=== PATIENT | male | born 1980 | race African-American/Black ===

== ENCOUNTER 2019-05-18 12:41 | Emergency (ER) | payer MEDICAID ==
[~2019-05-18] VITALS: Ht 188 cm; Wt 83.9 kg
[~2019-05-18 12:41] MED LIST: NKM
[2019-05-18 13:20] VITALS: BP 143/74
[2019-05-18] MEDS ORDERED: Haloperidol 5mg/ml Inj IM ONE (13:30)
[2019-05-18] MEDS ORDERED: DiphenhydrAMINE 50mg/ml Inj IM ONE (13:30)
[2019-05-18] MEDS ORDERED: LORazepam Inj 2mg/ml 1ml IM ONE (13:30)
--- NOTE | 2019-05-18 13:33 | NUR ---
ED Nurse Note: ASSITED PT INTO BE WITH [employer]
--- NOTE | 2019-05-18 13:50 | NUR ---
ED Nurse Note: PT ARRIVED WITH [address] AND [employer] AT BEDSIDE DUE TO HARM TO SELF. PT PLACED ON HOLD PER [employer]. PT IS VERBALLY ABUSIVE TO STAFF AND IS ANXIOUS.
--- NOTE | 2019-05-18 14:00 | NUR ---
ED Nurse Note: PT BELONINGS PLACED IN LOWER DIRT UTLITY LINEN LOCKER.
[2019-05-18 14:51] VITALS: BP 141/82
--- NOTE | 2019-05-18 15:07 | Emergency Room Report ---
History of Present Illness General Chief Complaint: Behavioral Complaint Source: Patient, EMS (Aquilino White MD) Present Illness HPI 38-year-old male unknown medical history presents with possible drug exposure patient was running throughout the street, almost getting hit by cars, patient is speaking in a pressured way history is limited due to patient's altered mental status, patient is being placed under a 5150 by police patient is also threatening staff and speaking to voices (Aquilino White MD) Allergies: Coded Allergies: No Known Allergies (Unverified , 01/27/16) Patient History Limited by: medical condition - Altered mental status Past Medical History: see triage record Reviewed Nursing Documentation: PMH: Agreed; PSxH: Agreed (Aquilino White MD) Nursing Documentation-PMH Past Medical History: No Stated History (Aquilino White MD) Review of Systems All Other Systems: limited - Altered mental status (Aquilino White MD) Physical Exam Vital Signs Date Time Temp Pulse Resp B/P (MAP) Pulse Ox O2 Delivery O2 Flow Rate FiO2 05/18/19 13:20 86 16 05/18/19 13:20 97.9 143/74 100 Room Air Sp02 EP Interpretation: reviewed, normal General Appearance: well appearing, no apparent distress, alert Head: normocephalic, atraumatic Eyes: bilateral eye PERRL, bilateral eye EOMI ENT: uvula midline, moist mucus membranes Neck: supple, thyroid normal, supple/symm/no masses Respiratory: lungs clear, no respiratory distress, no retraction, no accessory muscle use Cardiovascular #1: normal peripheral pulses, regular rate, rhythm, no edema, no gallop, no murmur Gastrointestinal: non tender, soft, no guarding, no rebound Musculoskeletal: normal inspection Neurologic: alert, oriented x3 Psychiatric: anxious, other - Reacting to internal stimuli Skin: no rash, warm/dry (Aquilino White MD) Medical Decision Making Diagnostic Impression: Primary Impression: Behavioral disorder Laboratory Tests Test 05/18/19 15:15 White Blood Count 6.8 K/UL (4.8-10.8) Red Blood Count 4.15 M/UL (4.70-6.10) L Hemoglobin 12.7 G/DL (14.2-18.0) L Hematocrit 37.1 % (42.0-52.0) L Mean Corpuscular Volume 89 FL (80-99) Mean Corpuscular Hemoglobin 30.5 PG (27.0-31.0) Mean Corpuscular Hemoglobin Concent 34.1 G/DL (32.0-36.0) Red Cell Distribution Width 12.2 % (11.6-14.8) Platelet Count 282 K/UL (150-450) Mean Platelet Volume 5.3 FL (6.5-10.1) L Neutrophils (%) (Auto) 59.1 % (45.0-75.0) Lymphocytes (%) (Auto) 25.7 % (20.0-45.0) Monocytes (%) (Auto) 7.9 % (1.0-10.0) Eosinophils (%) (Auto) 6.3 % (0.0-3.0) H Basophils (%) (Auto) 0.9 % (0.0-2.0) Sodium Level 148 MMOL/L (136-145) H Potassium Level 4.8 MMOL/L (3.5-5.1) Chloride Level 111 MMOL/L (98-107) H Carbon Dioxide Level 27 MMOL/L (21-32) Anion Gap 10 mmol/L (5-15) Blood Urea Nitrogen 25 mg/dL (7-18) H Creatinine 1.4 MG/DL (0.55-1.30) H Estimate Glomerular Filtration Rate > 60 mL/min (>60) Glucose Level 84 MG/DL (74-106) Calcium Level 9.2 MG/DL (8.5-10.1) Total Bilirubin Pending Aspartate Amino Transferase (AST) Pending Alanine Aminotransferase (ALT) Pending Alkaline Phosphatase Pending Total Protein Pending Albumin Pending Globulin Pending Salicylates Level Pending Acetaminophen Level Pending Serum Alcohol Pending (Aquilino White MD) ER Course Patient is endorsed me by Dr. White. He was medically cleared for psychiatric evaluation. Patient did have somnolence after medications. (Cedric Valenzuela MD) Last Vital Signs Date Time Temp Pulse Resp B/P (MAP) Pulse Ox O2 Delivery O2 Flow Rate FiO2 05/18/19 14:51 98.3 76 16 141/82 95 Room Air (Aquilino White MD) Reevaluation Time: 15:30 Reevaluation Impression Assumed care of the patient approximately 7 AM from previous provider Briefly, there is a 38-year-old male brought in on 5150 legal status for running through traffic. He has tested positive for amphetamines and has been medically cleared by previous provider for psychiatric evaluation. Patient has been seen by Dr. Garcia who has lifted the 5150 legal hold. Advised to no longer use amphetamines or other illicit drugs. Can follow-up on an outpatient basis with the resources included in discharge paperwork. Return to the emergency department new or worsening symptoms. (Ronal Rivera MD) Disposition: XFER TO PSYCH HOSP/UNIT Condition: Serious Referrals: [facility]ERR[facility] (PCP) Aquilino White MD May 18, 2019 15:07 Cedric Valenzuela MD May 18, 2019 21:03 Ronal Rivera MD May 19, 2019 15:37
--- NOTE | 2019-05-18 15:24 | NUR ---
ED Nurse Note: PT ASLEEP IN BED
[2019-05-18 15:40] LABS: BASOPHILS % (AUTO) 0.9 % (0.0-2.0); EOSINOPHILS % (AUTO) 6.3 % (0.0-3.0); HEMATOCRIT 37.1 % (42.0-52.0); HEMOGLOBIN 12.7 G/DL (14.2-18.0); LYMPHOCYTES % (AUTO) 25.7 % (20.0-45.0); MEAN CORPUSCULAR VOLUME 89 FL (80-99); MONOCYTES % (AUTO) 7.9 % (1.0-10.0); NEUTROPHILS % (AUTO) 59.1 % (45.0-75.0); PLATELET COUNT 282 K/UL (150-450); RED BLOOD COUNT 4.15 M/UL (4.70-6.10); RED CELL DISTRIBUTION WIDTH 12.2 % (11.6-14.8); WHITE BLOOD COUNT 6.8 K/UL (4.8-10.8)
[2019-05-18 16:10] LABS: ANION GAP 10 mmol/L (5-15); BLOOD UREA NITROGEN 25 mg/dL (7-18); CALCIUM 9.2 MG/DL (8.5-10.1); CARBON DIOXIDE 27 MMOL/L (21-32); CHLORIDE 111 MMOL/L (98-107); CREATININE 1.4 MG/DL (0.55-1.30); POTASSIUM 4.8 MMOL/L (3.5-5.1); SODIUM 148 MMOL/L (136-145)
[2019-05-18 16:22] LABS: ALANINE AMINOTRANSFERASE 31 U/L (12-78); ALBUMIN 3.8 G/DL (3.4-5.0); ALBUMIN/GLOBULIN RATIO 1.2 (1.0-2.7); ALKALINE PHOSPHATASE 97 U/L (46-116); ASPARTATE AMINO TRANSFERASE 30 U/L (15-37); BILIRUBIN,TOTAL 1.5 MG/DL (0.2-1.0)
[2019-05-18 16:28] LABS: BILIRUBIN,DIRECT 0.2 MG/DL (0.0-0.3)
[2019-05-18 16:47] VITALS: BP 130/74
--- NOTE | 2019-05-18 17:20 | NUR ---
ED Nurse Note: PT CALM AND ASLEEP
--- NOTE | 2019-05-18 17:35 | NUR ---
ED Nurse Note: PT URINATED ON SELF. LINENS AND GOWN CHANGED. PT GIVEN ADDITIONAL BLANKETS.
[2019-05-18 18:57] VITALS: BP 135/77
--- NOTE | 2019-05-18 18:57 | NUR ---
ED Nurse Note: PT REQUESTED URINAL BOTTLE. BOTTLE PROVIDED URINE OBTAINED
--- NOTE | 2019-05-18 19:04 | NUR ---
HAND-OFF: Report given to REY COPELAND RN.
--- NOTE | 2019-05-18 21:00 | NUR ---
ED Nurse Note: pt appears to be asleep in his bed, no acute distress noted. breathing is even and non-labored. safety precautions in place, sitter is at bedside. will continue to monitor pt
[2019-05-18 22:06] VITALS: BP 132/69
--- NOTE | 2019-05-19 02:00 | NUR ---
ED Nurse Note: pt appears to be asleep in bed with his eyes closed. does not appear to be in any distress at this time. breathing is even and non-labored, safety precautions in place. sitter at bedside
[2019-05-19 02:32] VITALS: BP 136/67
--- NOTE | 2019-05-19 05:00 | NUR ---
ED Nurse Note: breakfast tray has been ordered for pt. pt is in bed and appears to be sleeping, no acute distress is noted at this time. breathing is even and non-labored, VSS, safety precautions are in place, sitter is at bedside.
[2019-05-19 06:05] VITALS: BP 133/68
--- NOTE | 2019-05-19 06:14 | NUR ---
ED Nurse Note: pt able to ambulate to restroom with steady gait
--- NOTE | 2019-05-19 06:47 | NUR ---
ED Nurse Note: pt is in bed eating breakfast
--- NOTE | 2019-05-19 07:10 | NUR ---
HAND-OFF: Report given to LYNNE Ghosh.
--- NOTE | 2019-05-19 07:16 | NUR ---
ED Nurse Note: Pt lying comfortably in bed with no signs of distress. Pt denies suicidal ideation at this time. Room is safe. Respirations even and unlabored on room air. Vitals stable as documented.
--- NOTE | 2019-05-19 07:39 | NUR ---
ED Nurse Note: Cedric Vargas @ bedside
[2019-05-19 07:52] VITALS: BP 129/73
--- NOTE | 2019-05-19 15:15 | NUR ---
ED Nurse Note: DR. MENDEZ LIFTED THE HOLD
--- NOTE | 2019-05-19 15:58 | NUR ---
ED Nurse Note: Pt assessed by Dr. Garcia and tatiana to discharge. Pt denies suicidal ideation.
[2019-05-19 16:00] VITALS: BP 125/79
--- NOTE | 2019-05-19 16:00 | NUR ---
Homeless Discharge: Patient is being discharged from medical care. Awake, alert and oriented x4. After care instructions, including referral to community resources were given. Patient verbalized understanding of After care instructions; at this time patient does not request medications, equipment or placement. Patient signed patient consent in the medical record for patient destination upon discharge. All medical devices such as IV and ID band were removed. Patient ambulated out with all personal belongings with steady gait.
--- NOTE | 2019-05-20 17:45 | Consultation ---
DATE OF CONSULTATION: HISTORY OF PRESENT ILLNESS: This is a 38-year-old [facility] male with a history of substance use disorder since the patient using meth who has been admitted to the hospital on a 5150 for danger to self. The patient has been sleeping the whole time today in the emergency room, eating well, no behavior issues noted, was witnessed to be responding to internal stimuli. The patient is calm and cooperative during the evaluation. The patient is denying any suicidal ideation. He stated that he has a history of depression and has not been taking his med, not seeing his psychiatrist. PAST MEDICAL HISTORY: No history of medical condition. ALLERGIES: No known drug allergies. SUBSTANCE ABUSE HISTORY: Significant for illicit drug use specifically methamphetamines. His system is positive for meth. MENTAL STATUS EXAMINATION: The patient is alert and oriented times self, place, situation, and date. Mood is neutral. Affect is constricted. Congruent mood. Thought process is concrete. Thought content, there is no suicidal or homicidal ideation. No auditory or visual hallucination noticed. Cognition is intact. Insight and judgment is fair. ASSESSMENT: [place] I Methamphetamine abuse, rule out major depressive disorder. [place] II Deferred. [place] III As above. [place] IV Low. [place] V 20 PLAN: 1. The patient will be started on Ativan p.r.n. 2. Provide the patient with reality orientation and supportive therapy. Continue to follow and readjust the medication. Smooth Garcia M.D. DR: BELEN JOB#: [id number] CC: BECKY
== END 2019-05-19 16:00 | disposition home or self-care (01) ==
LOC: EDUNIT# 12:41 → EDBD 12:41 → EMR 14:20
DX: F91.9 Conduct disorder, unspecified (principal)
CPT/HCPCS: 36415; 80053; 80307; 82248; 85025; 96360; 96361; 96372; G0480; G0481; J1200; J1630; J7030; Z7502; 99285

== ENCOUNTER 2019-07-01 18:31 | Emergency (ER) | payer MEDICAID ==
[~2019-07-01] VITALS: Ht 198.1 cm; Wt 77.1 kg
--- NOTE | 2019-07-01 18:26 | NUR ---
ED Nurse Note: PT brought into ED by [facility] [address] for c/o pain to left foot x 3 days. denies injury.
[2019-07-01 18:27] VITALS: BP 180/98
--- NOTE | 2019-07-01 18:49 | Emergency Room Report ---
History of Present Illness General Chief Complaint: General Complaint Source: Patient Present Illness HPI Patient is a 38-year-old male who presents after increased foot pain after recent fall. Patient was brought in by EMS. Denies any other locations of current injury. He had recently been released from long term. Denies any prior medication history.Patient states that he had pain to both feet. Pain is sharp in nature. Denies any other locations of pain currently. Has been able to ambulate normally. COVID-19 risk:Travel to affect: No Allergies: Coded Allergies: IBUPROFEN (Unverified Allergy, Unknown, 07/02/19) Patient History Past Medical History: see triage record Reviewed Nursing Documentation: PMH: Agreed; PSxH: Agreed Nursing Documentation-PMH Past Medical History: No Stated History Review of Systems All Other Systems: negative except mentioned in HPI Physical Exam Vital Signs Date Time Temp Pulse Resp B/P (MAP) Pulse Ox O2 Delivery O2 Flow Rate FiO2 07/01/19 18:20 72 16 184/112 (136) 98 Room Air 07/01/19 18:27 97.9 General Appearance: well appearing, no apparent distress, alert, GCS 15, non- toxic Head: normocephalic, atraumatic ENT: hearing grossly normal, normal voice Neck: full range of motion, supple Respiratory: lungs clear, normal breath sounds, no respiratory distress, speaking full sentences Gastrointestinal: normal inspection, normal bowel sounds, non tender, soft Musculoskeletal: normal inspection Neurologic: alert, motor strength/tone normal, motion designer III-XII nml as tested, oriented x3, normal gait Psychiatric: mood/affect normal Skin: no rash Medical Decision Making Diagnostic Impression: Primary Impression: Immersion (trench) foot Additional Impression: Chronic foot pain ER Course Patient presented for foot pain. Differential diagnosis include was not limited to fracture, arthritis, pressure ulcer, among others. Patient was noted to have some skin changes consistent with over immersion due to wet socks. This appears to be fairly mild. Patient was given dry socks. X-rays of foot showed normal bony alignment without evident fracture. Was noted to be ambulatory without assistance. He was advised to follow-up with his primary care physician. Patient was given ibuprofen and tolerated this well. No signs of allergy. the patient is advised to follow up with primary care doctor in 1- 2 days. Patient is advised to return if any worsening condition or if any changes in status that are concerning. This report is dictated with [employer] wound care technician software which may occasionally lead to discrepancies related to use of this software. Last Vital Signs Date Time Temp Pulse Resp B/P (MAP) Pulse Ox O2 Delivery O2 Flow Rate FiO2 07/01/19 18:27 80 16 Room Air 07/01/19 18:27 97.9 180/98 98 Status: improved Disposition: HOME, SELF-CARE Condition: Stable Scripts Ibuprofen* (MOTRIN*) 600 Mg Tablet 600 MG ORAL Q8H PRN for For Pain, #30 TAB 0 Refills Prov: Cedric Valenzuela MD 07/01/19 Cedric Valenzuela MD Jul 01, 2019 18:49
--- NOTE | 2019-07-01 18:50 | NUR ---
ED Nurse Note: x ray taken at bedside.
--- NOTE | 2019-07-01 19:04 | NUR ---
ED Nurse Note: Report given to LYNNE Santiago. Endorsed plan of care.
--- NOTE | 2019-07-01 19:10 | NUR ---
ED Nurse Note: received report from Arin BATISTA. Pt is calm and sleeping.
[2019-07-01] MEDS ORDERED: IBUPROFEN600 MG ORAL (19:40)
[2019-07-01 20:00] VITALS: BP 133/65
--- NOTE | 2019-07-01 20:00 | NUR ---
ER DISCHARGE NOTE: Patient is cleared to be discharged per ERMD, pt is aox4, on room air, with stable vital signs. pt was given dc and prescription instructions, pt was able to verbalize understanding, pt id band removed without complications. pt signed homeless dc and was provided with proper clothing and nutrition. pt refused to provide dispo location. pt is able to ambulate with steady gait. pt took all belongings.
--- NOTE | 2019-07-02 12:15 | Diagnostic Imaging Report ---
Indication: Foot pain Comparison: None Findings: 3 views of the left foot were obtained. No acute fractures, malalignment, erosions or periostitis are identified. Soft tissues are unremarkable. Impression: No acute findings
[2019-07-02] MEDS ORDERED: TYLENOL EXTRA500 MG ORAL (17:52)
== END 2019-07-01 20:00 | disposition home or self-care (01) ==
LOC: EDBD 18:31 → EMR 19:00
DX: M79.672 Pain in left foot (principal); W19.XXXA Unspecified fall, initial encounter; Y92.9 Unspecified place or not applicable
CPT/HCPCS: 73630; Z7502; 99283

== ENCOUNTER 2019-07-02 17:28 | Emergency (ER) | payer MEDICAID ==
[~2019-07-02] VITALS: Ht 198.1 cm; Wt 81.6 kg
[~2019-07-02 17:28] MED LIST changes: +IBUPROFEN600 MG ORAL
--- NOTE | 2019-07-02 17:34 | NUR ---
ED Nurse Note: Pt BIBA ambulance for bilateral feet pain 12/29. Pt denies numbness or tingling. Pt is alert and orientedx4, ambulatory. Pt ROM 4/5 bilateral feet. No swelling or redness. Pt states he is homeless. PA has seen pt.
--- NOTE | 2019-07-02 17:40 | Emergency Room Report ---
Physical Exam Vital Signs Date Time Temp Pulse Resp B/P (MAP) Pulse Ox O2 Delivery O2 Flow Rate FiO2 07/02/19 17:23 98.1 84 18 174/101 (125) 98 Room Air Medical Decision Making Last Vital Signs Date Time Temp Pulse Resp B/P (MAP) Pulse Ox O2 Delivery O2 Flow Rate FiO2 07/02/19 17:23 98.1 84 18 174/101 (125) 98 Room Air Carlo Trejo Jul 02, 2019 17:40
[2019-07-02 17:44] VITALS: BP 169/96
[2019-07-02] MEDS ORDERED: TYLENOL EXTRA500 MG ORAL (17:52)
--- NOTE | 2019-07-02 17:52 | Emergency Room Report ---
History of Present Illness General Chief Complaint: Pain Source: Patient, EMS Present Illness HPI 38-year-old male with history of chronic foot pain due to transient condition was here [facility] yesterday and was discharged earlier today brought in by [employer] for the same complaint of foot pain. Reports that last night he was unable to get any pain medication from the pharmacy. Denies any new fall or injury. Requests a prescription for pain medication is okay with Tylenol. Trench foot is noted, no calf tenderness noted. COVID-19 risk:Travel to affect: No Has patient experienced sarabia: No Allergies: Coded Allergies: IBUPROFEN (Unverified Allergy, Unknown, 07/02/19) Patient History Past Medical History: see triage record Past Surgical History: unable to obtain Pertinent Family History: unable to obtain Immunizations: UTD Reviewed Nursing Documentation: PMH: Agreed; PSxH: Agreed Nursing Documentation-PMH Past Medical History: No History, Except For Hx Hypertension: Yes Review of Systems All Other Systems: negative except mentioned in HPI Physical Exam Vital Signs Date Time Temp Pulse Resp B/P (MAP) Pulse Ox O2 Delivery O2 Flow Rate FiO2 07/02/19 17:23 98.1 84 18 174/101 (125) 98 Room Air Sp02 EP Interpretation: reviewed, normal General Appearance: no apparent distress, alert, GCS 15, non-toxic Head: normocephalic, atraumatic Eyes: bilateral eye normal inspection, bilateral eye PERRL ENT: hearing grossly normal, normal pharynx, no angioedema, normal voice Neck: full range of motion, no meningismus, supple/symm/no masses Respiratory: chest non-tender, lungs clear, normal breath sounds, no rhonchi, no wheezing, speaking full sentences Cardiovascular #1: regular rate, rhythm, no edema Cardiovascular #2: 2+ dorsalis pedis (R), 2+ dorsalis pedis (L) Gastrointestinal: non tender, soft Rectal: deferred Genitourinary: no CVA tenderness Musculoskeletal: back normal, no calf tenderness, other - Trench presentation of feet Neurologic: alert, motor strength/tone normal, oriented x3, sensory intact, responsive, speech normal Psychiatric: memory normal, no suicidal/homicidal ideation Skin: no rash Lymphatic: no adenopathy Medical Decision Making PA Attestation All diagnoses and treatment plans were reviewed and discussed with my supervising physician Dr. Alonso Diagnostic Impression: Primary Impression: Chronic foot pain ER Course 38-year-old male with history of chronic foot pain due to transient condition was here [place] [facility] yesterday and was discharged earlier today brought in by [employer] for the same complaint of foot pain. Reports that last night he was unable to get any pain medication from the pharmacy. Denies any new fall or injury. Requests a prescription for pain medication is okay with Tylenol. Trench foot is noted, no calf tenderness noted. Ddx considered but are not limited to: foot fracture, foot sprain, foot contusion, foot strain Vital signs: are WNL, pt. is afebrile H&PE are most consistent with: Chronic foot pain due to current presentation ORDERS: tylenol ED INTERVENTIONS:tylenol DISCHARGE: At this time pt. is stable for d/c to home. Will provide printed patient care instructions, and any necessary prescriptions. Care plan and follow up instructions have been discussed with the patient prior to discharge. This is chronic condition, follow-up primary care provider, if worsening symptom return to emergency room Last Vital Signs Date Time Temp Pulse Resp B/P (MAP) Pulse Ox O2 Delivery O2 Flow Rate FiO2 07/02/19 17:44 98.1 79 16 169/96 97 Room Air Disposition: HOME, SELF-CARE Condition: Stable Scripts Acetaminophen* (TYLENOL EXTRA STRENGTH*) 500 Mg Tablet 500 MG ORAL Q8H PRN for Prn Headache/Temp > 101, #30 TAB 0 Refills Prov: Carlo Trejo 07/02/19 Referrals: NON PHYSICIAN (PCP) Patient Instructions: Chronic Pain Carlo Trejo Jul 02, 2019 17:52
--- NOTE | 2019-07-02 18:03 | NUR ---
ER DISCHARGE NOTE: Patient is cleared to be discharged per ERMD, pt is aox4, on room air, with stable vital signs. pt was given dc and prescription instructions and refused to wait to get it filled out at [facility], pt was able to verbalize understanding, pt id band removed. pt is able to ambulate with steady gait. pt took all belongings. Homeless log fill out and mini cog filled out. Resources provided.
[2019-07-02 18:04] VITALS: BP 159/92
== END 2019-07-02 18:09 | disposition home or self-care (01) ==
LOC: EDBD 17:28 → EMR 17:43
DX: M79.671 Pain in right foot (principal); G89.29 Other chronic pain; I10 Essential (primary) hypertension; Z88.6 Allergy status to analgesic agent
CPT/HCPCS: 99282